=== PATIENT | female | born 1965 | race Caucasian/White ===

== ENCOUNTER 2017-04-28 20:10 | Emergency (ER) | payer MEDICAID, OTHER ==
[~2017-04-28] VITALS: Ht 162.6 cm; Wt 86.0 kg
[2017-04-28 20:40] VITALS: BP 133/77
== END 2017-04-29 01:45 | disposition left against medical advice (07) ==
LOC: ER 20:57
DX: R06.02 Shortness of breath (principal); Z53.21 Procedure and treatment not carried out due to patient leaving prior to being seen by health care provider

== ENCOUNTER 2019-07-21 12:42 | Emergency (ER) | payer OTHER ==
[~2019-07-21] VITALS: Ht 162.6 cm; Wt 86.0 kg
[2019-07-21 14:43] VITALS: BP 112/64
== END 2019-07-21 14:52 | disposition home or self-care (01) ==
LOC: ER 12:42
DX: Z20.828 Contact with and (suspected) exposure to other viral communicable diseases (principal); R05 Cough; R07.89 Other chest pain; R06.00 Dyspnea, unspecified; J45.909 Unspecified asthma, uncomplicated; E11.9 Type 2 diabetes mellitus without complications; Z88.6 Allergy status to analgesic agent
CPT/HCPCS: 71045; 93005; 99283